=== PATIENT | female | born 1985 | race Caucasian/White ===

== ENCOUNTER 2017-06-15 07:35 | Emergency (ER) | payer OTHER ==
[~2017-06-15] VITALS: Ht 170.2 cm; Wt 101.5 kg
[~2017-06-15 07:35] MED LIST: FLUO10CA24 PO; FLUO20CA36 PO; LEVO75TA5 PO; MULTTAB58 PO
[2017-06-15 07:38] VITALS: TEMP 36.6; Ht 170.2 cm; Wt 101.5 kg
[2017-06-15] MEDS ORDERED: FLUO40CA8 PO (07:54)
[2017-06-15] MEDS ORDERED: KETOROLAC TROMETHAMINE 60 MG/2 ML VIAL IM STA (07:54)
--- NOTE | 2017-06-15 08:36 | DIAGNOSTIC IMAGING REPORT ---
L-SPINE MIN 4 VIEWS ROUTINE CLINICAL HISTORY: Left leg sciatica COMPARISON STUDY: No previous studies for comparison. FINDINGS: There is a transitional vertebra with partial sacralization of the L5 vertebral body. There is accessory transverse process sacral articulation at the L5 level on the left. There are no fractures or subluxations. There is disc space narrowing and osteophyte formation at the L4-5 level. IMPRESSION: 1. No fractures or subluxations 2. Transitional L5 vertebra 3. Degenerative changes at the L4-5 level with disc space narrowing and osteophyte formation Electronically signed by: Filiberto Live M.D. 06/15/2017 8:34 AM Dictated Date/Time: 06/15/2017 8:33 AM
--- NOTE | 2017-06-15 08:52 | DIAGNOSTIC IMAGING REPORT ---
ULTRASOUND L VENOUS DOPP LOWER EXT UNILAT CLINICAL HISTORY: Left calf pain COMPARISON STUDY: No previous studies for comparison. FINDINGS: Real-time and color flow Doppler imaging were performed. Flow was seen within the femoral, popliteal and calf veins with no intraluminal thrombus demonstrated. The saphenous vein is patent. IMPRESSION: No evidence of left lower extremity DVT. Electronically signed by: Filiberto Live M.D. 06/15/2017 8:51 AM Dictated Date/Time: 06/15/2017 8:50 AM
[2017-06-15 09:12] VITALS: BP 127/78; PULSE 62; O2SAT 97
[2017-06-15] MEDS ORDERED: PRED50TA PO (09:27)
[2017-06-15] MEDS ORDERED: HYDR-5688 PO (09:27)
--- NOTE | 2017-06-15 11:46 | EMERGENCY ROOM VISIT NOTE ---
History First contact with patient: 07:42 Chief Complaint: LEG PAIN,LEG INJURY Stated Complaint: LEFT LEG PAIN TO ANKLE History of Present Illness The patient is a 31 year old female who presents to the Emergency Room with complaints of persistent and ongoing left leg pain. The patient has been diagnosed previously with sciatica, but is not complaining of more increased pain to her left calf. The patient's symptoms worsen with certain movement. She is not on hormonal control and denies recent travel history. Her primary concern today is for a DVT. She does not have fever or chills. No chest pain, chest tightness, or shortness of breath. She rates her discomfort a 5/10. Review of Systems More than 10 systems were reviewed and otherwise negative with the exception of history of present illness. Past Medical/Surgical History Medical Problems: (1) Strep throat Family History Patient reports no known family medical history. Social History Smoking Status: Never Smoker Alcohol Use: none Drug Use: none Marital Status: single Housing Status: lives with family Occupation Status: unemployed Current/Historical Medications Scheduled Fluoxetine (Prozac), 40 MG PO DAILY Prednisone (Prednisone), 50 MG PO DAILY Scheduled PRN Hydrocodone/Acetaminophen 5MG/325MG ([place] 5MG/325MG), 1-2 TABLET PO Q6 PRN for Pain Physical Exam Vital Signs Date Time Temp Pulse Resp B/P (MAP) Pulse Ox O2 Delivery O2 Flow Rate FiO2 06/15/17 09:12 62 18 127/78 97 Room Air 06/15/17 07:38 36.6 80 18 124/84 99 Room Air Physical Exam VITALS: Vitals are noted on the nurse's note and reviewed by myself. Vital signs stable. GENERAL: Well-developed, well-nourished, white female, who is in no acute distress and resting comfortably. Patient is cooperative with the examination. HEART: Regular rate and rhythm without murmurs gallops or rubs. LUNGS: Clear to auscultation bilaterally without wheezes, rales or rhonchi. No retractions or accessory muscle use. ABDOMEN: Positive normal bowel sounds x 4. Soft, nontender, without masses or organomegaly. No guarding or rebound tenderness. MUSCULOSKELETAL: Mild left-sided SI joint tenderness is appreciated on palpation of the spine. No significant step-off or paravertebral spasm. Negative straight leg raise. No saddle paresthesias. There is positive tenderness along the posterior aspect of the lateral left calf. No distinct palpable cord. Neurovascular status is intact distally. NEURO: Patient was alert and oriented to person place and time. CN II through XII grossly intact. Deep tendon reflexes 2+ throughout. Medical Decision & Procedures ER Provider Diagnostic Interpretation: L-SPINE MIN 4 VIEWS ROUTINE CLINICAL HISTORY: Left leg sciatica COMPARISON STUDY: No previous studies for comparison. FINDINGS: There is a transitional vertebra with partial sacralization of the L5 vertebral body. There is accessory transverse process sacral articulation at the L5 level on the left. There are no fractures or subluxations. There is disc space narrowing and osteophyte formation at the L4-5 level. IMPRESSION: 1. No fractures or subluxations 2. Transitional L5 vertebra 3. Degenerative changes at the L4-5 level with disc space narrowing and osteophyte formation ULTRASOUND L VENOUS DOPP LOWER EXT UNILAT CLINICAL HISTORY: Left calf pain COMPARISON STUDY: No previous studies for comparison. FINDINGS: Real-time and color flow Doppler imaging were performed. Flow was seen within the femoral, popliteal and calf veins with no intraluminal thrombus demonstrated. The saphenous vein is patent. IMPRESSION: No evidence of left lower extremity DVT. Medications Administered Medications (Trade) Dose Ordered Sig/Jd Route Start Time Stop Time Status Last Admin Dose Admin Ketorolac Tromethamine (Toradol Inj) 60 mg NOW STAT IM 06/15/17 07:54 06/15/17 07:56 DC 06/15/17 08:04 60 MG ED Course Physical exam and history were performed. Nursing notes, EMR, and Medication List were personally reviewed. Patient appears to have left-sided leg pain that is increasing with left calf pain. The patient's primary concern is for a DVT. She was given 60 mg IM Toradol here in the department. I did elect to perform plain films of her back as this has not yet occurred. Additionally ultrasound of her left calf was performed. X-rays do not show significant acute process. Ultrasound was negative for DVT. Clinically the patient felt improved after intervention here. I will give her a course of prednisone with a short course of Vicodin. She is to continue Advil and Tylenol at home. The patient is to follow with her primary care physician for what appears to be musculoskeletal pain. She was otherwise invited back to the ER with any new, worsening, or concerning symptoms. The chart was completed utilizing [employer] Speech Voice Recognition Software. Grammatical errors, random word insertions, pronoun errors, and incomplete sentences are an occasional consequence of this system due to software limitations, ambient noise, and hardware issues. Any formal questions or concerns about the content, text, or information contained within the body of this dictation should be directly addressed to the provider for clarification. . Medical Decision Differential diagnosis: Etiologies such as musculoskeletal, disc herniation, fracture, aortic disease, metastatic disease, cord compression, discitis, infection, renal colic, gastrointestinal, acute exacerbation of chronic back pain, sciatica, cauda equina, as well as others were entertained. [place] Drug Monitoring Program Search Results: patient reviewed within database Medication Reconcilliation Current Medication List: was personally reviewed by me Blood Pressure Screening Patient's blood pressure: Normal blood pressure Impression Primary Impression: Pain in left leg Departure Information Dispostion Home / Self-Care Condition GOOD Prescriptions Hydrocodone/Acetaminophen 5MG/325MG ([place] 5MG/325MG) Tab 1-2 TABLET PO Q6 Y for Pain, #15 TAB For Initial Treatment Prov: Roc Luevano PA-C 06/15/17 Prednisone (Prednisone) 50 Mg Tab 50 MG PO DAILY for 4 Days, #4 TAB Prov: Roc Luevano PA-C 06/15/17 Forms HOME CARE DOCUMENTATION FORM, Work Instructions, Additional Instructions: Patient was seen and evaluated in the emergency department for medica care. Return to work on 06/18/2017. Please excuse. IMPORTANT VISIT INFORMATION Patient Instructions My [facility] Additional Instructions You were seen and evaluated today on an emergency basis only. This is not a substitute for, or an effort to provide, complete comprehensive medical care. It is not possible to recognize and treat all injuries or illnesses in a single emergency department visit. For this reason it is recommended that you followup with your primary care physician in the next 2-3 days for recheck of your condition. For baseline pain relief you may alternate ibuprofen and acetaminophen every 4 hours for pain control. Take 600 mg ibuprofen (Advil) and then 4 hours later take 1000 mg acetaminophen (Tylenol). Do not take more than 3000 mg acetaminophen in a single day. [place] (hydrocodone/acetaminophen) 5/325 mg ONE or TWO every 6 hours as needed for worsening breakthrough pain. Do not drink or drive on [place]. This medication will likely make you tired. Do not take [place] and Tylenol at the same time as both contain acetaminophen. [place] may cause constipation. You may wish to take an [id number] stool softener like Colace if this occurs. Take prednisone as prescribed You are welcome to return to the emergency department anytime with new, worsening, or concerning symptoms. Work Instructions Additional Work Instructions: Patient was seen and evaluated in the emergency department for medical care. Return to work on 06/18/2017. Please excuse.
== END 2017-06-15 09:57 | disposition home or self-care (01) ==
LOC: C.EDB 07:36 → C.EDA 09:57
DX: M79.605 Pain in left leg (principal)